=== PATIENT | male | born 1975 | race Caucasian/White ===

== ENCOUNTER 2017-03-10 01:53 | Emergency (ER) | payer OTHER ==
[~2017-03-10] VITALS: Ht 182.9 cm; Wt 90.7 kg
[~2017-03-10 01:53] MED LIST: BUSP10 PO; FLUO10 PO; HYDR1TAB94 PO; TRAM50 PO; Tylenol With C1 EACH PO; Zofran Odt4 MG SL
[2017-03-10 02:46] LABS: BASOPHILS ABSOLUTE AUTO 0.01 K/mm3 (0.00-0.23); BASOPHILS PERCENT AUTO 0 % (0-2); EOSINOPHILS PERCENT AUTO 1 % (0-6); Hematocrit 43.6 % (37.0-53.0); Hemoglobin 15.1 g/dL (13.5-17.5); IMMATURE GRAN ABSOLUTE AUTO 0.01 K/mm3 (0.00-0.10); IMMATURE GRAN PERCENT AUTO 0 % (0-1); LYMPHOCYTES ABSOLUTE AUTO 1.96 K/mm3 (0.84-5.20); LYMPHOCYTES PERCENT AUTO 19 % (21-46); MONOCYTES ABSOLUTE AUTO 0.53 K/mm3 (0.16-1.47); MONOCYTES PERCENT AUTO 5 % (4-13); Mean Corpuscular HGB 30.7 pg (26.0-34.0); Mean Corpuscular HGB Conc 34.6 g/dL (31.5-36.5); Mean Corpuscular Volume 89 fL (80-100); Mean Platelet Volume 9.5 fL (9.1-12.4); NEUTROPHILS ABSOLUTE AUTO 7.57 K/mm3 (1.96-9.15); NEUTROPHILS PERCENT AUTO 74 % (41-73); Platelet Count 250 K/mm3 (150-400); RDW Coefficient Variation 13.5 % (11.7-14.2); RDW Standard Deviation 44.2 fL (35.1-46.3); Red Blood Cell Count 4.92 M/mm3 (4.30-5.90); White Blood Cell Count 10.18 K/mm3 (4.00-11.30)
[2017-03-10 03:09] LABS: Anion Gap 6 mmol/L (6-16); Blood Urea Nitrogen 14 mg/dL (8-24); Bun/Creatinine Ratio 18.9 (12.0-20.0); CO2, Blood 29 mmol/L (21-32); Calcium, Blood 8.6 mg/dL (8.5-10.1); Chloride, Blood 105 mmol/L (98-108); Creatinine, Blood 0.74 mg/dL (0.60-1.20); Glomerular Filtration Rate >60 (60-); Glucose, Blood 80 mg/dL (70-99); Potassium, Blood 3.7 mmol/L (3.5-5.5); Sodium, Blood 140 mmol/L (136-145); Troponin I <0.015 ng/mL (0.000-0.040)
== END 2017-03-10 04:36 | disposition home or self-care (01) ==
LOC: ER 01:53
PROVIDERS: Emergency Medicine
DX: R55 Syncope and collapse (principal); S40.011A Contusion of right shoulder, initial encounter; S09.90XA Unspecified injury of head, initial encounter; F17.200 Nicotine dependence, unspecified, uncomplicated; Z91.030 Bee allergy status; Z91.018 Allergy to other foods; Z79.899 Other long term (current) drug therapy; W22.8XXA Striking against or struck by other objects, initial encounter
CPT/HCPCS: 36415; 70450; 72125; 73030; 80048; 84484; 85025; 93005; 93010; 99284

== ENCOUNTER 2018-07-02 21:31 | Observation (INO) | payer OTHER ==
[~2018-07-02] VITALS: Ht 177.8 cm; Wt 93.7 kg
[2018-07-02 22:42] LABS: BASOPHILS ABSOLUTE AUTO 0.02 K/mm3 (0.00-0.23); BASOPHILS PERCENT AUTO 0 % (0-2); EOSINOPHILS ABSOLUTE AUTO 0.05 K/mm3 (0.00-0.68); EOSINOPHILS PERCENT AUTO 1 % (0-6); Hemoglobin 16.7 g/dL (13.5-17.5); IMMATURE GRAN ABSOLUTE AUTO 0.01 K/mm3 (0.00-0.10); IMMATURE GRAN PERCENT AUTO 0 % (0-1); LYMPHOCYTES ABSOLUTE AUTO 1.85 K/mm3 (0.84-5.20); LYMPHOCYTES PERCENT AUTO 26 % (21-46); MONOCYTES ABSOLUTE AUTO 0.42 K/mm3 (0.16-1.47); MONOCYTES PERCENT AUTO 6 % (4-13); Mean Corpuscular HGB 29.5 pg (26.0-34.0); Mean Corpuscular HGB Conc 34.1 g/dL (31.5-36.5); Mean Corpuscular Volume 87 fL (80-100); Mean Platelet Volume 9.5 fL (9.1-12.4); NEUTROPHILS ABSOLUTE AUTO 4.77 K/mm3 (1.96-9.15); NEUTROPHILS PERCENT AUTO 67 % (41-73); Platelet Count 299 K/mm3 (150-400); RDW Coefficient Variation 12.9 % (11.7-14.2); RDW Standard Deviation 40.9 fL (35.1-46.3); Red Blood Cell Count 5.66 M/mm3 (4.30-5.90); White Blood Cell Count 7.12 K/mm3 (4.00-11.30)
[2018-07-02 23:00] LABS: Ethanol (Alcohol), Blood, Med <3 mg/dL; Salicylate <1.7 mg/dL (2.8-20.0)
[2018-07-02 23:01] LABS: Alanine Aminotransfer (ALT/SGP 23 U/L (12-78); Albumin, Blood 4.1 g/dL (3.4-5.0); Albumin/Globulin Ratio 1.1 (0.8-1.8); Alk Phos 108 U/L (50-136); Anion Gap 6 mmol/L (6-16); Aspartate Aminotrans (AST/SGOT 11 U/L (12-37); Bilirubin, Total 0.4 mg/dL (0.1-1.0); Blood Urea Nitrogen 9 mg/dL (8-24); Bun/Creatinine Ratio 11.4 (12.0-20.0); CO2, Blood 27 mmol/L (21-32); Calcium, Blood 9.2 mg/dL (8.5-10.1); Chloride, Blood 107 mmol/L (98-108); Creatinine, Blood 0.79 mg/dL (0.60-1.20); Globulin, Blood 3.7 g/dL (2.2-4.0); Glomerular Filtration Rate >60 (60-); Glucose, Blood 100 mg/dL (70-99); Potassium, Blood 3.5 mmol/L (3.5-5.5); Sodium, Blood 140 mmol/L (136-145); Total Protein, Blood 7.8 g/dL (6.4-8.2)
[2018-07-02 23:04] LABS: Acetaminophen, Random <2.0 ug/mL (10.0-30.0)
[2018-07-03 03:11] LABS: Source, Urine Clean Catch
[2018-07-03 03:14] LABS: Appearance, Urine Clear (Clear); Bilirubin, Urine Neg (Neg); Blood, Urine Neg (Neg); Color, Urine Yellow (P-Yellow); Glucose Qualitative, Urine Neg (Neg); Ketones, Urine Neg (Neg); Leukocyte Esterase, Urine Neg (Neg); Nitrite, Urine Neg (Neg); Protein, Urine Neg (Neg); Urobilinogen, Urine NORM (Normal)
[2018-07-03 03:25] LABS: U Amphetamine Screen Not Detected; U Barbituate Screen Not Detected; U Benzodiazapine Screen DETECTED; U Buprenorphine Screen Not Detected; U Cannabinoids Screen DETECTED; U Cocaine Screen Not Detected; U Methadone Screen Not Detected; U Methamphetamine Screen Not Detected; U Opiates Screen Not Detected; U Oxycodone Screen Not Detected; U Phencyclidine Screen Not Detected; U Propoxyphene Screen Not Detected
[2018-07-03 05:29] LABS: Hematocrit 44.1 % (37.0-53.0); Hemoglobin 14.8 g/dL (13.5-17.5); Mean Corpuscular HGB 29.4 pg (26.0-34.0); Mean Corpuscular HGB Conc 33.6 g/dL (31.5-36.5); Mean Corpuscular Volume 88 fL (80-100); Mean Platelet Volume 9.4 fL (9.1-12.4); Platelet Count 263 K/mm3 (150-400); RDW Coefficient Variation 13.2 % (11.7-14.2); RDW Standard Deviation 41.8 fL (35.1-46.3); Red Blood Cell Count 5.03 M/mm3 (4.30-5.90); White Blood Cell Count 5.75 K/mm3 (4.00-11.30)
[2018-07-03 05:50] LABS: Alanine Aminotransfer (ALT/SGP 21 U/L (12-78); Albumin, Blood 3.5 g/dL (3.4-5.0); Albumin/Globulin Ratio 1.1 (0.8-1.8); Alk Phos 95 U/L (50-136); Anion Gap 4 mmol/L (6-16); Aspartate Aminotrans (AST/SGOT 11 U/L (12-37); Bilirubin, Total 0.3 mg/dL (0.1-1.0); Blood Urea Nitrogen 8 mg/dL (8-24); Bun/Creatinine Ratio 9.3 (12.0-20.0); CO2, Blood 30 mmol/L (21-32); Calcium, Blood 8.7 mg/dL (8.5-10.1); Chloride, Blood 108 mmol/L (98-108); Creatinine, Blood 0.86 mg/dL (0.60-1.20); Globulin, Blood 3.3 g/dL (2.2-4.0); Glomerular Filtration Rate >60 (60-); Glucose, Blood 86 mg/dL (70-99); Potassium, Blood 3.8 mmol/L (3.5-5.5); Sodium, Blood 142 mmol/L (136-145); Total Protein, Blood 6.8 g/dL (6.4-8.2)
--- NOTE | 2018-07-03 07:31 | NUR ---
SHIFT SUMMARY PT IS A NEW ADMIT EARLY THIS AM AROUND 0200. AOX4. VSS, EXCEPT HR IS MANDY 48-50'S & PER PT THAT IS HIS NORMAL. HOWEVER THIS AM AROUND 0615 TELE MOLD CHIPPER CALLED TO INFORM ME, HR HAD DROPPED TO 34 FOR A FEW SEC & HAD BEEN 38-40 FOR 5-10 MINUTES, I CHECKED ON PT & HE WAS ASYMPTOMATIC, NOTIFIED DR MARTINEZ & NO NEW ORDERS @THIS TIME. PT DENIES ANY NAUSEA OR SOB, REPORTS HIS NAUSEA HAS BEEN BETTER SINCE THEY GAVE HIM ZOFRAN LAST NIGHT IN THE ER, ABD IS SLIGHTLY TENDER & HYPERACTIVE PT REPORTS "IT'S PROBABLY TENDER FROM THROWING UP YESTERDAY." REPORTS CHRONIC BACK PAIN 10/11, APPLIED KPAD & DENIED NEED FOR PAIN MEDICATION, EXCEPT FOR IBPROPHEN IF HE COULD GET ORDERED, INFORMED DAY NURSE OF REQUEST. INDEPENDENT IN ROOM, CALL LIGHT IN REACH.
--- NOTE | 2018-07-03 07:48 | NUR ---
PT DENIES SUICIDAL IDEATION AT THIS TIME
[2018-07-03] MEDS ORDERED: ONDA4ODT MM (10:45)
--- NOTE | 2018-07-03 11:16 | NUR ---
SUMMARY PT DISCHARGED TO HOME, PT VERBALIZED UNDERSTANDING OF DISCHARGE INSTRUCTIONS, PT REPORTS HE PREFERS TO MAKE HIS OWN FOLLOW UP APPOINTMENT, PT DECLINED A WHEELCHAIR AND WAS ABLE TO AMBULATE SAFELY TO THE ELEVATOR
== END 2018-07-03 11:08 | disposition home or self-care (01) ==
LOC: ER 21:31 → MEDS 21:32 → ENPENDDIS 07-03 10:45 → MEDS 07-03 11:08
PROVIDERS: Emergency Medicine; ADMIT Internal Medicine
DX: R11.2 Nausea with vomiting, unspecified (principal); R19.7 Diarrhea, unspecified; R23.2 Flushing; T50.905A Adverse effect of unspecified drugs, medicaments and biological substances, initial encounter; F17.200 Nicotine dependence, unspecified, uncomplicated; M54.9 Dorsalgia, unspecified; G89.29 Other chronic pain; Z79.899 Other long term (current) drug therapy
CPT/HCPCS: 36415; 80053; 81003; 85025; 85027; 96361; 96374; 96375; 99284-25; G0378; G0480; J1200; J2060; J2405; J7030; Q3014

== ENCOUNTER 2019-04-23 07:32 | Observation (INO) | payer OTHER ==
[~2019-04-23] VITALS: Ht 177.8 cm; Wt 93.4 kg
[~2019-04-23 07:32] MED LIST changes: +ONDA4ODT MM
[2019-04-23 08:40] LABS: Source, Urine Clean Catch
[2019-04-23 08:47] LABS: BASOPHILS ABSOLUTE AUTO 0.01 K/mm3 (0.00-0.23); BASOPHILS PERCENT AUTO 0 % (0-2); EOSINOPHILS ABSOLUTE AUTO 0.01 K/mm3 (0.00-0.68); EOSINOPHILS PERCENT AUTO 0 % (0-6); Hematocrit 50.2 % (37.0-53.0); Hemoglobin 17.2 g/dL (13.5-17.5); IMMATURE GRAN PERCENT AUTO 0 % (0-1); LYMPHOCYTES ABSOLUTE AUTO 1.04 K/mm3 (0.84-5.20); LYMPHOCYTES PERCENT AUTO 23 % (21-46); MONOCYTES ABSOLUTE AUTO 0.34 K/mm3 (0.16-1.47); MONOCYTES PERCENT AUTO 8 % (4-13); Mean Corpuscular HGB 29.6 pg (26.0-34.0); Mean Corpuscular HGB Conc 34.3 g/dL (31.5-36.5); Mean Corpuscular Volume 86 fL (80-100); Mean Platelet Volume 9.2 fL (9.1-12.4); NEUTROPHILS ABSOLUTE AUTO 3.04 K/mm3 (1.96-9.15); NEUTROPHILS PERCENT AUTO 69 % (41-73); Platelet Count 320 K/mm3 (150-400); RDW Coefficient Variation 13.5 % (11.7-14.2); RDW Standard Deviation 42.2 fL (35.1-46.3); Red Blood Cell Count 5.82 M/mm3 (4.30-5.90); White Blood Cell Count 4.44 K/mm3 (4.00-11.30)
[2019-04-23 08:52] LABS: Bilirubin, Urine Neg (Neg); Blood, Urine Neg (Neg); Glucose Qualitative, Urine Neg (Neg); Ketones, Urine Neg (Neg); Leukocyte Esterase, Urine Neg (Neg); Nitrite, Urine Neg (Neg); Protein, Urine Neg (Neg); Specific Gravity, Urine 1.025 (1.003-1.022); Urobilinogen, Urine NORM (Normal)
[2019-04-23 08:59] LABS: Appearance, Urine Clear (Clear); Color, Urine Yellow (P-Yellow)
[2019-04-23 09:11] LABS: Alanine Aminotransfer (ALT/SGP 29 U/L (12-78); Albumin, Blood 4.3 g/dL (3.4-5.0); Alk Phos 100 U/L (50-136); Anion Gap 7 mmol/L (6-16); Aspartate Aminotrans (AST/SGOT 17 U/L (12-37); Bilirubin, Total 0.5 mg/dL (0.1-1.0); Blood Urea Nitrogen 12 mg/dL (8-24); Bun/Creatinine Ratio 15.2 (12.0-20.0); CO2, Blood 29 mmol/L (21-32); Calcium, Blood 9.3 mg/dL (8.5-10.1); Chloride, Blood 106 mmol/L (98-108); Creatinine, Blood 0.79 mg/dL (0.60-1.20); Ethanol (Alcohol), Blood, Med <3 mg/dL; Globulin, Blood 4.1 g/dL (2.2-4.0); Glomerular Filtration Rate >60 (60-); Glucose, Blood 100 mg/dL (70-99); Potassium, Blood 3.2 mmol/L (3.5-5.5); Salicylate <1.7 mg/dL (2.8-20.0); Sodium, Blood 142 mmol/L (136-145); Total Protein, Blood 8.4 g/dL (6.4-8.2); U Amphetamine Screen Not Detected; U Barbituate Screen Not Detected; U Benzodiazapine Screen Not Detected; U Buprenorphine Screen Not Detected; U Cannabinoids Screen DETECTED; U Cocaine Screen Not Detected; U Methadone Screen Not Detected; U Methamphetamine Screen Not Detected; U Opiates Screen Not Detected; U Oxycodone Screen Not Detected; U Phencyclidine Screen Not Detected; U Propoxyphene Screen Not Detected
[2019-04-23 09:12] LABS: Acetaminophen, Random <2.0 ug/mL (10.0-30.0)
[2019-04-23 09:19] LABS: Thyroxine (T4) 11.1 ug/dL (4.5-12.1)
[2019-04-23 09:22] LABS: Thyroid Stimulating Hormone 0.378 uIU/mL (0.360-4.800)
== END 2019-04-25 10:33 ==
LOC: ER 07:32 → EOR 07:33
PROVIDERS: ADMIT Emergency Medicine
DX: R45.851 Suicidal ideations (principal); F32.9 Major depressive disorder, single episode, unspecified; Z91.038 Other insect allergy status; Z91.018 Allergy to other foods; Z79.899 Other long term (current) drug therapy
CPT/HCPCS: 36415; 80053; 81003; 84436; 84443; 85025; 99285; G0378; G0480

== ENCOUNTER 2020-06-12 03:26 | Emergency (ER) | payer OTHER ==
[~2020-06-12] VITALS: Ht 177.8 cm; Wt 92.5 kg
[2020-06-12 03:47] LABS: BASOPHILS ABSOLUTE AUTO 0.03 K/mm3 (0.00-0.23); BASOPHILS PERCENT AUTO 0 % (0-2); EOSINOPHILS ABSOLUTE AUTO 0.05 K/mm3 (0.00-0.68); EOSINOPHILS PERCENT AUTO 1 % (0-6); Hematocrit 46.1 % (37.0-53.0); Hemoglobin 16.4 g/dL (13.5-17.5); IMMATURE GRAN ABSOLUTE AUTO 0.01 K/mm3 (0.00-0.10); IMMATURE GRAN PERCENT AUTO 0 % (0-1); LYMPHOCYTES ABSOLUTE AUTO 1.67 K/mm3 (0.84-5.20); LYMPHOCYTES PERCENT AUTO 22 % (21-46); MONOCYTES ABSOLUTE AUTO 0.51 K/mm3 (0.16-1.47); MONOCYTES PERCENT AUTO 7 % (4-13); Mean Corpuscular HGB Conc 35.6 g/dL (31.5-36.5); Mean Corpuscular Volume 84 fL (80-100); Mean Platelet Volume 9.6 fL (9.1-12.4); NEUTROPHILS ABSOLUTE AUTO 5.48 K/mm3 (1.96-9.15); NEUTROPHILS PERCENT AUTO 71 % (41-73); Platelet Count 318 K/mm3 (150-400); RDW Coefficient Variation 13.2 % (11.7-14.2); Red Blood Cell Count 5.47 M/mm3 (4.30-5.90); White Blood Cell Count 7.75 K/mm3 (4.00-11.30)
[2020-06-12 04:03] LABS: Alanine Aminotransfer (ALT/SGP 28 U/L (12-78); Albumin, Blood 3.8 g/dL (3.4-5.0); Alk Phos 116 U/L (50-136); Anion Gap 8 mmol/L (6-16); Aspartate Aminotrans (AST/SGOT 18 U/L (12-37); Bilirubin, Total 0.3 mg/dL (0.1-1.0); Blood Urea Nitrogen 9 mg/dL (8-24); Bun/Creatinine Ratio 10.8 (12.0-20.0); CO2, Blood 21 mmol/L (21-32); Chloride, Blood 112 mmol/L (98-108); Creatinine, Blood 0.83 mg/dL (0.60-1.20); Glomerular Filtration Rate >60 (60-); Glucose, Blood 95 mg/dL (70-99); Potassium, Blood 3.7 mmol/L (3.5-5.5); Sodium, Blood 141 mmol/L (136-145); Total Protein, Blood 7.8 g/dL (6.4-8.2)
[2020-06-12 04:52] LABS: Ethanol (Alcohol), Blood, Med 40 mg/dL; Troponin I <0.015 ng/mL (0.000-0.040)
[2020-06-12 05:32] LABS: Source, Urine Clean Catch
[2020-06-12 05:34] LABS: Bilirubin, Urine Neg (Neg); Blood, Urine Neg (Neg); Glucose Qualitative, Urine Neg (Neg); Ketones, Urine 1+ (Neg); Leukocyte Esterase, Urine Neg (Neg); Nitrite, Urine Neg (Neg); Protein, Urine Neg (Neg); Specific Gravity, Urine 1.015 (1.003-1.022); Urobilinogen, Urine NORM (Normal)
[2020-06-12 05:42] LABS: Appearance, Urine Clear (Clear); Color, Urine Yellow (P-Yellow)
== END 2020-06-12 06:11 | disposition home or self-care (01) ==
LOC: ER 03:26
PROVIDERS: Student in an Organized Health Care Education/Training Program
DX: R10.13 Epigastric pain (principal); Z91.030 Bee allergy status; Z91.018 Allergy to other foods; Z87.891 Personal history of nicotine dependence
CPT/HCPCS: 36415; 71045; 80053; 81003; 83690; 84484; 85025; 93005; 93010; 96374; 99284-25; A9270; G0480; J2550

== ENCOUNTER 2024-09-04 13:37 | Observation (INO) | payer OTHER ==
[~2024-09-04] VITALS: Ht 185.4 cm; Wt 96.5 kg
[~2024-09-04 13:37] MED LIST changes: +ASPI81CH PO; +DESMOPRESS10 MCG/0.2; +FAMO20 PO; +LORA.5 PO; +NICO2 PO; +Robaxin750 MG
[2024-09-04] MEDS ORDERED: NS 1,000 ML IV SCH (14:55)
[2024-09-04 15:15] LABS: Source, Urine Clean Catch
[2024-09-04 15:20] LABS: BASOPHILS ABSOLUTE AUTO 0.03 K/mm3 (0.00-0.23); BASOPHILS PERCENT AUTO 0 % (0-2); EOSINOPHILS ABSOLUTE AUTO 0.13 K/mm3 (0.00-0.68); EOSINOPHILS PERCENT AUTO 2 % (0-6); Hematocrit 44.0 % (37.0-53.0); Hemoglobin 14.9 g/dL (13.5-17.5); IMMATURE GRAN ABSOLUTE AUTO 0.02 K/mm3 (0.00-0.10); IMMATURE GRAN PERCENT AUTO 0 % (0-1); LYMPHOCYTES ABSOLUTE AUTO 1.61 K/mm3 (0.84-5.20); LYMPHOCYTES PERCENT AUTO 22 % (21-46); MONOCYTES ABSOLUTE AUTO 0.61 K/mm3 (0.16-1.47); MONOCYTES PERCENT AUTO 8 % (4-13); Mean Corpuscular HGB Conc 33.9 g/dL (31.5-36.5); Mean Corpuscular Volume 89 fL (80-100); NEUTROPHILS ABSOLUTE AUTO 5.08 K/mm3 (1.96-9.15); NEUTROPHILS PERCENT AUTO 68 % (41-73); NRBC ABSOLUTE 0.00 K/mm3 (0.00-0.02); NRBC Auto 0.0 /100 WBC (0.0-0.2); Platelet Count 286 K/mm3 (150-400); RDW Coefficient Variation 13.5 % (11.7-14.2); RDW Standard Deviation 43.8 fL (35.1-46.3)
[2024-09-04 15:24] LABS: Bilirubin, Urine Neg (Neg); Color, Urine Yellow (P-Yellow); Glucose Qualitative, Urine Neg (Neg); Ketones, Urine Neg (Neg); Leukocyte Esterase, Urine Neg (Neg); Protein, Urine Neg (Neg); Specific Gravity, Urine 1.010 (1.003-1.022); Urobilinogen, Urine NORM (Normal)
[2024-09-04 15:36] LABS: Alanine Aminotransfer (ALT/SGP 26.0 U/L (12-78); Albumin, Blood 3.7 g/dL (3.4-5.0); Albumin/Globulin Ratio 1.0 (0.8-1.8); Anion Gap 4.0 mmol/L (3-11); Aspartate Aminotrans (AST/SGOT 16.0 U/L (12-37); Bilirubin, Total 0.3 mg/dL (0.1-1.0); Blood Urea Nitrogen 13.0 mg/dL (8-24); CO2, Blood 32.0 mmol/L (21-32); Calcium, Blood 9.1 mg/dL (8.5-10.1); Chloride, Blood 105.0 mmol/L (98-108); Creatinine, Blood 0.87 mg/dL (0.60-1.20); Globulin, Blood 3.6 g/dL (2.2-4.0); Glucose, Blood 103.0 mg/dL (70-99); Potassium, Blood 3.4 mmol/L (3.5-5.5); Sodium, Blood 138.0 mmol/L (136-145); Total Protein, Blood 7.3 g/dL (6.4-8.2)
[2024-09-04 15:39] LABS: Red Blood Cells, Urine Not Seen /hpf (0-2); White Blood Cells, Urine Not Seen /hpf (0-5)
[2024-09-04] MEDS ORDERED: Ondansetron HCl 2 MG / ML 2ML Vial ONE (16:05)
[2024-09-04] MEDS ORDERED: Ondansetron HCl 2 MG / ML 2ML Vial IV SCH (16:20)
[2024-09-04] MEDS ORDERED: Ketorolac Tromethamine 30mg Vial IV ONE (16:40)
[2024-09-04 18:38] LABS: Thyroid Stimulating Hormone 1.16 uIU/mL (0.360-4.800)
[2024-09-04] MEDS ORDERED: Potassium Chloride 10 Meq Tablet SA PO ONE (18:50)
[2024-09-04] MEDS ORDERED: HYDROcodone 5-APAP 325 TAB PO PRN (22:10)
[2024-09-04] MEDS ORDERED: DULO30 PO (23:59)
[2024-09-05] MEDS ORDERED: ONDA4ODT MM (00:01)
[2024-09-05] MEDS ORDERED: Benadryl Itch28.3 G1 TOP (00:05)
[2024-09-05 00:16] VITALS: BP 128/83
--- NOTE | 2024-09-05 01:54 | NUR ---
ASSUMPTION OF CARE REPORT RECIEVED FROM ER NURSE. PT ARRIVED TO PCU AROUND 2340. PT SLID FROM ER GURNEY TO PCU BED. PT DENIES ANY DIZZY/HURTADO. HR IN THE 40'S, SINUS MANDY. DENIES CP/PRESSURE, NUMB/TINGLING. SBP STABLE. O2 >92% ON RA, DENIES ANY SOB. PT RESTING IN BED AT THIS TIME, CALL LIGHT IN REACH. WILL MONITOR PT.
[2024-09-05 03:04] LABS: BASOPHILS ABSOLUTE AUTO 0.03 K/mm3 (0.00-0.23); BASOPHILS PERCENT AUTO 1 % (0-2); EOSINOPHILS ABSOLUTE AUTO 0.25 K/mm3 (0.00-0.68); EOSINOPHILS PERCENT AUTO 4 % (0-6); Hematocrit 42.7 % (37.0-53.0); Hemoglobin 14.7 g/dL (13.5-17.5); IMMATURE GRAN ABSOLUTE AUTO 0.01 K/mm3 (0.00-0.10); IMMATURE GRAN PERCENT AUTO 0 % (0-1); LYMPHOCYTES ABSOLUTE AUTO 2.27 K/mm3 (0.84-5.20); LYMPHOCYTES PERCENT AUTO 34 % (21-46); MONOCYTES ABSOLUTE AUTO 0.63 K/mm3 (0.16-1.47); MONOCYTES PERCENT AUTO 10 % (4-13); Mean Corpuscular HGB Conc 34.4 g/dL (31.5-36.5); Mean Corpuscular Volume 86 fL (80-100); NEUTROPHILS ABSOLUTE AUTO 3.44 K/mm3 (1.96-9.15); NEUTROPHILS PERCENT AUTO 52 % (41-73); NRBC ABSOLUTE 0.00 K/mm3 (0.00-0.02); NRBC Auto 0.0 /100 WBC (0.0-0.2); Platelet Count 289 K/mm3 (150-400); RDW Coefficient Variation 13.5 % (11.7-14.2); RDW Standard Deviation 43.0 fL (35.1-46.3)
[2024-09-05 03:23] LABS: Alanine Aminotransfer (ALT/SGP 25 U/L (12-78); Albumin, Blood 3.4 g/dL (3.4-5.0); Albumin/Globulin Ratio 0.9 (0.8-1.8); Anion Gap 5 mmol/L (3-11); Aspartate Aminotrans (AST/SGOT 16 U/L (12-37); Bilirubin, Total 0.3 mg/dL (0.1-1.0); Blood Urea Nitrogen 14 mg/dL (8-24); CO2, Blood 31 mmol/L (21-32); Calcium, Blood 8.9 mg/dL (8.5-10.1); Chloride, Blood 108 mmol/L (98-108); Creatinine, Blood 0.91 mg/dL (0.60-1.20); Ethanol (Alcohol), Blood, Med <3 mg/dL; Globulin, Blood 3.6 g/dL (2.2-4.0); Glucose, Blood 98 mg/dL (70-99); Magnesium, Blood 2.1 mg/dL (1.6-2.4); Potassium, Blood 4.1 mmol/L (3.5-5.5); Sodium, Blood 140 mmol/L (136-145); Total Protein, Blood 7.0 g/dL (6.4-8.2)
[2024-09-05 05:04] VITALS: BP 103/70
--- NOTE | 2024-09-05 05:29 | NUR ---
SHIFT SUMMARY PT A&O X4, CALM, COOPERATIVE TO CARE. HR IN THE 40'S, OCASSIONALLY HITTING THE HIGH 30'S. HE DENIES ANY DIZZINESS/LIGHT HEADED. NO CP/PRESSURE, NUMB/TINGLING, SBP STABLE. O2 >92% ON RA, HE DENIES ANY SOB. PT NPO SINCE MIDNIGHT FOR POSSIBLE PROCEDURE/CARDIO CONSULT. PT RESTING IN BED T/O NIGHT. HE DENIES ANY QUESTIONS/CONCNERNS. CALL LIGHT IN REACH. WILL MONITOR PT AND REPORT TO ONCOMING RN.
[2024-09-05] MEDS ORDERED: DiphenhydrAMINE HCL/Zinc Acet Cream TOP PRN (05:40)
[2024-09-05 07:55] VITALS: BP 122/72
[2024-09-05] MEDS ORDERED: Desmopressin Acetate 5 ml Nasal Spray 10mcg/spray SCH (09:00)
[2024-09-05 11:18] VITALS: BP 112/74
--- NOTE | 2024-09-05 16:41 | NUR ---
SHIFT SUMMARY PT A/OX4 AND COOPERATIVE OF CARE. PT ANXIOUS AT TIMES, TREATED PER EMAR. PT ABLE TO EXPRESS NEEDS AND CALLS APPROPIATE. PT SEEN BY SEWER LINE PHOTO INSPECTOR TODAY, PLAN FOR TILT TABLE TEST TOMORROW, NPO AT MIDNIGHT. PT HR SB-SR RANGING 40-70'S THROUGHOUT SHIFT. NO REPORT OF CHEST PAIN/PRESSURE, PT DID REPORT SLIGHT LIGHTHEADEDNESS AND DIZZINESS AT TIMES. OTHER VSS THROUGHOUT SHIFT. NO REPORT OF SOB/DYSPNEA THROUGHOUT SHIFT. PT PRESENT WHEN MD AND SEWER LINE PHOTO INSPECTOR WERE IN PT ROOM, UPDATED ON PLAN OF CARE. PT SBA FOR SAFETY WHEN UP IN ROOM.
[2024-09-05 16:51] VITALS: BP 115/81
[2024-09-05 19:52] VITALS: BP 125/83
[2024-09-05] MEDS ORDERED: DULoxetine HCL 30 MG Cap DR PO SCH (21:00)
[2024-09-06] VITALS (26 sets, daily range): BP systolic 102–132; BP diastolic 72–96
[2024-09-06 04:06] LABS: BASOPHILS ABSOLUTE AUTO 0.04 K/mm3 (0.00-0.23); BASOPHILS PERCENT AUTO 1 % (0-2); EOSINOPHILS ABSOLUTE AUTO 0.29 K/mm3 (0.00-0.68); EOSINOPHILS PERCENT AUTO 5 % (0-6); Hematocrit 43.8 % (37.0-53.0); Hemoglobin 15.3 g/dL (13.5-17.5); IMMATURE GRAN ABSOLUTE AUTO 0.02 K/mm3 (0.00-0.10); IMMATURE GRAN PERCENT AUTO 0 % (0-1); LYMPHOCYTES ABSOLUTE AUTO 1.71 K/mm3 (0.84-5.20); LYMPHOCYTES PERCENT AUTO 29 % (21-46); MONOCYTES ABSOLUTE AUTO 0.68 K/mm3 (0.16-1.47); MONOCYTES PERCENT AUTO 11 % (4-13); Mean Corpuscular HGB Conc 34.9 g/dL (31.5-36.5); Mean Corpuscular Volume 86 fL (80-100); NEUTROPHILS ABSOLUTE AUTO 3.23 K/mm3 (1.96-9.15); NEUTROPHILS PERCENT AUTO 54 % (41-73); NRBC ABSOLUTE 0.00 K/mm3 (0.00-0.02); NRBC Auto 0.0 /100 WBC (0.0-0.2); Platelet Count 379 K/mm3 (150-400); RDW Coefficient Variation 13.6 % (11.7-14.2); RDW Standard Deviation 42.5 fL (35.1-46.3)
[2024-09-06 04:24] LABS: Anion Gap 6.0 mmol/L (3-11); Blood Urea Nitrogen 12.0 mg/dL (8-24); CO2, Blood 29.0 mmol/L (21-32); Calcium, Blood 9.3 mg/dL (8.5-10.1); Chloride, Blood 106.0 mmol/L (98-108); Creatinine, Blood 0.82 mg/dL (0.60-1.20); Glucose, Blood 104.0 mg/dL (70-99); Potassium, Blood 4.3 mmol/L (3.5-5.5); Sodium, Blood 137.0 mmol/L (136-145)
--- NOTE | 2024-09-06 05:20 | NUR ---
SHIFT SUMMARY PT A&O X4, ANXIOUS AT TIMES, COOPERATIVE TO CARE. HR IN THE 40'S-50'S T/O NIGHT, IN THE 70'S WITH EXERTION. HE DENIES ANY CP/PRESSURE, NUMB/TINGLING, SBP STABLE. O2 >92% ON RA, HE DENIES ANY SOB. ENCOURAGED FLUIDS AT START OF SHIFT. EDUCATED PT ON IMPORTNANCE OF MEASURING INTAKE AND OUTPUT AND ENCOURAGED TO USE URINAL OR HAT, PT AGREED TO PLAN. PT NPO SINCE [place] FOR TILT TABLE TEST TODAY. PT RESTING IN BED AT THIS TIME. CALL LIGHT IN REACH. WILL MONITOR PT AND REPORT TO ONCOMING RN.
--- NOTE | 2024-09-06 08:58 | NUR ---
AM NOTE: PATIENT ALERT AND ORIENTED X4. EXPRESSES SOME ANXIETY THIS AM CONCERNING TABLE TILT TEST PLANNED WITH DR. TANG. MOVING ALL EXTREMITIES. DENIES PAINS. UP TO BATHROOM WITH SBA DUE TO BRADYCARDIA. TELE SHOWING SINUS MANDY WITH HR 40-50'S AT REST AND UP TO 70'S WITH ACTIVITY. DENIES DIZZINESS WHEN UP. SBP 120'S. NO EDEMA NOTED. PPP. IV SALINE LOCKED. DR. TANG TO BEDSIDE THIS AM, NO NEW ORDERS FOR THIS RN TO PLACE. PRESENT FOR MD BEDOLLA. ON ROOM AIR. LUNG SOUNDS CLEAR. DENIES SOB/COUGH. EVEN AND UNLABORED RESPIRATIONS. BOWEL TONES PRESENT THROUGHOUT ALL FOUR QUADRANTS OF ABDOMIN. NPO AT THIS TIME PER CARDIOLOGY. UP TO BATHROOM WITH SBA. STRICT INTAKE AND OUTPUT. DENIES ABDOMINAL PAIN. ZOFRAN GIVEN THIS AM FOR MILD NAUSEA. SKIN C/D/I. CALL LIGHT IN REACH. DENIES NEEDS AT THIS TIME.
--- NOTE | 2024-09-06 10:10 | NUR ---
PATIENT TO HEART CENTER AT THIS TIME.
--- NOTE | 2024-09-06 10:35 | NUR ---
PT TO HC FOR TILT TABLE TEST. PT DENIES CP OR SOB PRIOR TO STARTING TEST. DR SOFIA DISCUSSED TEST WITH PT.
--- NOTE | 2024-09-06 10:41 | NUR ---
PT TILTED TO 70 DEGREES, REPORTS FEELING FLUSHED WITH CHANGE IN POSITION, HR AND B/P STABLE (SEE EHR FOR PROCEUDRE VS).
--- NOTE | 2024-09-06 10:46 | NUR ---
PT REPORTS FLUSHED SENSATION RESOLVING.
--- NOTE | 2024-09-06 10:50 | NUR ---
PT REPORTS FLUSHED SENSATION RESOLVED.
--- NOTE | 2024-09-06 11:20 | NUR ---
PT RETURNED FLAT, NO SYMPTOMS VSS UPON RETURNING TO FLAT POSITION. DR SOFIA DISCUSSED RESULTS OF TEST WITH PT.
--- NOTE | 2024-09-06 11:26 | NUR ---
REPORT CALLED TO DEMIAN PAYTON; ALL QUESTIONS ANSWERED. PT RETURNED TO PCU 7 VIA W/C, CONDITION STABLE.
--- NOTE | 2024-09-06 11:36 | NUR ---
PATIENT BACK FROM HEART CENTER. VITAL SIGNS STABLE. SITTING ON EDGE OF BED EATING LUNCH AT THIS TIME. ANXIOUS TO GO HOME.
--- NOTE | 2024-09-06 13:22 | NUR ---
DISCHARGE: NO ACUTE CHANGES. PATIENT REMAINS STABLE WITH NO SYMPTOMS OF BRADYCARDIA. PLANS TO FOLLOW UP WITH PCP ON September, [facility] September AND October. IV REMOVED. DISCUSSED S/S TO RETURN, STOPPED MEDICATION AND EDUCATION REGARDING HOSPITAL STAY. AT BEDSIDE FOR DISCHARGE EDUCATION. LEFT UNIT WITH ALL PERSONAL BELONGINGS AND DISCHARGE PACKET.
== END 2024-09-06 13:20 | disposition home or self-care (01) ==
LOC: ER 13:37 → PCU 21:51
PROVIDERS: Emergency Medicine; Internal Medicine; Student in an Organized Health Care Education/Training Program; ADMIT Student in an Organized Health Care Education/Training Program
DX: R55 Syncope and collapse (principal); R00.1 Bradycardia, unspecified; E23.2 Diabetes insipidus; G89.29 Other chronic pain; M54.9 Dorsalgia, unspecified; Z87.891 Personal history of nicotine dependence; Z79.82 Long term (current) use of aspirin; Z79.899 Other long term (current) drug therapy; Z88.5 Allergy status to narcotic agent; Z88.8 Allergy status to other drugs, medicaments and biological substances; Z91.018 Allergy to other foods; Z91.038 Other insect allergy status
CPT/HCPCS: 36415; 71046; 74177; 80048; 80053; 80320; 81001; 82947; 83690; 83735; 84439; 84443; 84484; 85025; 93005; 93010; 93660; 96374-59; 96375; 96376; 99285-25; A9270; G0378; J1885; J2405; J7030; Q9967